=== PATIENT | female | born 1970 | race Caucasian/White ===

== ENCOUNTER 2021-06-23 22:00 | Emergency (ER) | payer OTHER, SELFPAY ==
[2021-06-23 22:09] VITALS: BP 155/89; PULSE 85; RESP 18; TEMP 36.7; O2SAT 98; BMI 40.7
--- NOTE | 2021-06-23 22:49 | DI.RAD.S_ITS ---
PROCEDURE: XR CHEST 1V INDICATIONS: chest pain TECHNIQUE: One view of the chest was acquired. COMPARISON: None. FINDINGS: Surgical changes and devices: None. Lungs and pleura: Lungs are clear. No pleural effusions or pneumothorax. Mediastinum: Mediastinal contours appear normal. Heart size is normal. Bones and chest wall: No suspicious bony lesions. Overlying soft tissues appear unremarkable. IMPRESSION: No acute cardiopulmonary disease process. Dictated by: Mariana Mckenzie MD, PhD on 06/24/2021 at 7:34 Approved by: Mariana Mckenzie MD, PhD on 06/24/2021 at 7:34
[2021-06-23 23:15] LABS: Add Manual Diff / Slide Review NO; Basophils Absolute Auto 100 /uL (0-100); Basophils Percent Auto 1.2 % (0-2); Eosinophils Absolute Auto 200 /uL (0-450); Eosinophils Percent Auto 1.6 % (2-4); Hematocrit 37.8 % (36-46); Hemoglobin 12.8 g/dL (12.0-16.0); Lymphocytes Absolute Auto 4100 /uL (1100-4500); Mean Corpuscular HGB Conc 33.8 % (30-36); Mean Corpuscular Hemoglobin 31.3 PG (26-34); Mean Corpuscular Volume 92.5 fL (80-100); Monocytes Absolute Auto 700 /uL (0-900); Monocytes Percent Auto 5.9 % (3-14); Neutrophils Absolute Auto 7200 /uL (1500-7000); Neutrophils Percent Auto 58.3 % (50-75); Platelet Count 348 X10^3/uL (150-400); Red Blood Cell Count 4.08 X10^6/uL (4.0-5.2); Red Cell Distribution Width 13.5 % (11.6-14.8); White Blood Cell Count 12.3 X10^3/uL (4.5-11.0)
[2021-06-23 23:21] LABS: Alanine Aminotransferase 26 IU/L (<35); Albumin 4.2 g/dL (3.5-5.0); Albumin Globulin Ratio 1.4 (1.0-2.8); Alkaline Phosphatase 80 U/L (38-126); Aspartate Aminotransferase 27 IU/L (14-36); Bilirubin Total 0.2 mg/dL (0.2-1.3); Blood Urea Nitrogen 12 mg/dL (7-17); Calcium 8.8 mg/dL (8.4-10.2); Carbon Dioxide 29 mmol/L (22-32); Chloride 101 mmol/L (98-107); Creatine Kinase 46 U/L (30-135); Estimated Glomerular Filt Rate > 60.0 mL/min (>60); Globulin 3.1 g/dL (1.7-4.1); Glucose 155 mg/dL (70-100); HEMOLYSIS 19 (0-50); Lipase 139 U/L (23-300); Potassium 3.6 mmol/L (3.4-5.1); Sodium 137 mmol/L (137-145); Total Protein 7.3 g/dL (6.3-8.2)
[2021-06-23 23:32] LABS: Troponin I < 0.012 ng/mL (0.01-0.034)
--- NOTE | 2021-06-24 00:21 | ED_ITS ---
HPI - Chest Pain General Chief Complaint: Chest Pain Stated Complaint: chest pain Time Seen by Provider: 06/24/21 00:20 Source: patient Mode of arrival: Ambulatory Limitations: no limitations History of Present Illness HPI narrative: 50-year-old woman with a prior history of myocarditis last year diagnosed with pain mild exertional dyspnea elevated sed rate and elevated troponins followed by a human resources hr representative and have her than treated with metoprolol presents with left-sided chest pain. She notes that she was diagnosed with the left DVT an on apixaban for 3 months now has resolved. The chest pain that she is describing is typically left sternal border can radiate down to the epigastrium and this weekend was radiating into the left axilla occasionally associated with exertional dyspnea but not consistently. The symptoms have been present for almost 2 weeks and not getting significantly worse. She does not note fevers, cough, chills, palpitations. She has not noticed increased or changed to lower extremity edema. Does not describe abdominal pain, vomiting, diarrhea. She has noticed no skin changes. Review of Systems Review of Systems Narrative: Remainder of complete review of systems is otherwise unremarkable except for that included in the HPI. Patient History Medical History (Updated 06/24/21 @ 00:44 by Alivia Coreas MD) DVT (deep vein thrombosis) in Myocarditis Social History Smoking Status: Never smoker Smoking Status: Never smoker Substance Use Type: does not use Exam Narrative Exam Narrative: General: Healthy appearing, in no acute distress. Able to give a complete and coherent history. Well-nourished well-developed HEENT: Moist mucous membranes, normal sclera with reactive pupils, Neck: No JVD, supple Respiratory: Lungs are clear to auscultation, no wheezing no rales no rhonchi. Full and symmetrical air movement Cardiac: Regular rate and rhythm no murmurs no bruits Chest: Reproducible tenderness with palpation along the left sternal border. Abdomen: Soft, nontender, good bowel tones, no flank pain Skin: Warm and dry, no rashes Neurologic: Grossly neurologically intact with no obvious asymmetries or abnormalities Extremities: No trauma, well perfused Psych: Cooperative, appropriate insight and affect Initial Vital Signs Initial Vital Signs: Vital Signs Temperature 98.0 F 06/23/21 22:09 Pulse Rate 85 06/23/21 22:09 Respiratory Rate 18 06/23/21 22:09 Blood Pressure 155/89 H 06/23/21 22:09 Pulse Oximetry 98 06/23/21 22:09 Course Orders Ordered: ED Orders 06/23/21 22:22 EKG-12 Lead Routine EKG-12 Lead Stat 06/23/21 22:49 XR chest 1V Stat 06/23/21 23:00 Complete Blood Count AUTO DIFF Stat Comprehensive Metabolic Panel Stat Lipase Stat Troponin & CK Cardiac Panel Stat Sodium Chloride (Normal Saline 0.9%) 1,000 mls @ 150 mls/hr IV CONT AMY Prednisone (Prednisone 20 Mg Tablet) 60 mg PO NOW ONE Stop: 06/24/21 00:45 Vital Signs Vital signs: Vital Signs - 8 hr 06/23/21 22:09 Temperature 98.0 F Pulse Rate 85 Respiratory Rate 18 Blood Pressure 155/89 H Pulse Oximetry 98 MDM - Chest Pain Lab Data Result diagrams: 06/23/21 23:00 06/23/21 23:00 Labs: Lab Results 06/23/21 06/23/21 Range/Units 23:00 23:00 WBC 12.3 H (4.5-11.0) X10^3/uL RBC 4.08 (4.0-5.2) X10^6/uL Hgb 12.8 (12.0-16.0) g/dL Hct 37.8 (36-46) % MCV 92.5 (80-100) fL MCH 31.3 (26-34) PG MCHC 33.8 (30-36) % RDW 13.5 (11.6-14.8) % Plt Count 348 (150-400) X10^3/uL Neut % (Auto) 58.3 (50-75) % Lymph % (Auto) 33.0 (25-40) % [place] % (Auto) 5.9 (3-14) % Eos % (Auto) 1.6 L (2-4) % Baso % (Auto) 1.2 (0-2) % Neut # (Auto) 7200 H (3203-4757) /uL Lymph # (Auto) 4100 (9098-8580) /uL [place] # (Auto) 700 (0-900) /uL Eos # (Auto) 200 (0-450) /uL Baso # (Auto) 100 (0-100) /uL Sodium 137 (137-145) mmol/L Potassium 3.6 (3.4-5.1) mmol/L Chloride 101 (98-107) mmol/L Carbon Dioxide 29 (22-32) mmol/L BUN 12 (7-17) mg/dL Creatinine 0.60 (0.52-1.04) mg/dL Estimated GFR > 60.0 (>60) mL/min BUN/Creatinine Ratio 20.0 (6-22) Glucose 155 H (70-100) mg/dL Calcium 8.8 (8.4-10.2) mg/dL Total Bilirubin 0.2 (0.2-1.3) mg/dL AST 27 (14-36) IU/L ALT 26 (<35) IU/L Alkaline Phosphatase 80 (38-126) U/L Total Creatine Kinase 46 (30-135) U/L CK-MB (CK-2) TNP CK-MB (CK-2) Rel Index TNP Troponin I < 0.012 (0.01-0.034) ng/mL Total Protein 7.3 (6.3-8.2) g/dL Albumin 4.2 (3.5-5.0) g/dL Globulin 3.1 (1.7-4.1) g/dL Albumin/Globulin Ratio 1.4 (1.0-2.8) Lipase 139 (23-300) U/L Imaging Data Chest x-ray: My Impression: Mild cardiomegaly with no infiltrates, no pneumothorax, no interstitial edema. 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 She continues on metoprolol and last echocardiogram was while she was in the hospital for the initial diagnosis with myocarditis. She has had central chest pain for approximately 2 weeks with some radiating pain noticed 3 days ago that has since resolved. No significant ancillary factors. Workup today does not suggest acute coronary syndrome, recurrent myocarditis, pericarditis, pneumothorax, pulmonary embolism, pneumonia or other infection. With reproducible pain on palpation along the left sternal border the possibility of costochondritis is certainly raised. Will give her 60 mg of prednisone and see if that helps reduce some of the inflammatory response. Recommended ibuprofen and Tylenol and follow-up with both her primary care physician as well as her human resources hr representative. She is safe for home discharge at this time Discharge Plan Departure Patient Disposition: Home Clinical Impression: Costalchondritis Instructions: DI for Costochondritis Activity Restrictions/Additional Instructions: Thank you for coming in today With your workup today I do not see any evidence of recurrent myocarditis, acute coronary syndrome heart attack, blood clots in your lungs or infection of any type. With the pain that your having reproducible pushing on the left side of your breast bone I suspect that you have costochondritis. I have given you a single dose of steroid in the emergency department and using 400 mg of ibuprofen (2 [id number] pills) and 1 Tylenol every 6 hours can be very helpful in controlling pain. If you have changing or worsening symptoms please return to the emergency department. In the meantime I would recommend follow-up with both your human resources hr representative and your primary care physician.
[2021-06-24] MEDS: predniSONE 20 MG TABLET 60 MG PO (00:48)
[2021-06-24 00:54] VITALS: BP 129/82; PULSE 69; RESP 12; O2SAT 100
[2021-06-24 01:26] LABS: Erythrocyte Sedimentation Rate 16 MM/HR (0-20)
== END 2021-06-24 00:59 | disposition home or self-care (01) ==
PROVIDERS: Emergency Provider Emergency Medicine
DX: M94.0 Chondrocostal junction syndrome [Tietze] (principal)
CPT/HCPCS: 36415; 71045; 80053; 82550; 83690; 84484; 85025; 85651; 93005; 99283; 99284